=== PATIENT | male | born 1990 | race Caucasian/White ===

== ENCOUNTER 2019-03-27 17:32 | Emergency (ER) | payer OTHER ==
[~2019-03-27] VITALS: Ht 193 cm; Wt 143.2 kg
[2019-03-27] MEDS ORDERED: CETI10TA59 PO (17:45)
[2019-03-27] MEDS ORDERED: IBUPROFEN 400 MG TABLET PO ONE (20:00)
[2019-03-27 20:32] VITALS: BP 138/85
== END 2019-03-27 20:54 | disposition home or self-care (01) ==
LOC: EMS 17:35
DX: S09.90XA Unspecified injury of head, initial encounter (principal); F12.90 Cannabis use, unspecified, uncomplicated; Z79.899 Other long term (current) drug therapy; V49.9XXA Car occupant (driver) (passenger) injured in unspecified traffic accident, initial encounter; Y93.89 Activity, other specified; Y92.488 Other paved roadways as the place of occurrence of the external cause; Y99.8 Other external cause status